=== PATIENT | female | born 1965 | race African-American/Black ===

== ENCOUNTER 2022-05-31 10:41 | Emergency (ER) | payer OTHER ==
[~2022-05-31] VITALS: Ht 172.7 cm; Wt 108.0 kg
[2022-05-31 10:44] VITALS: BP 120/76
[2022-05-31] MEDS ORDERED: INSU100I28 SQ (10:47)
[2022-05-31] MEDS ORDERED: HYDR12.54 PO (10:47)
[2022-05-31] MEDS ORDERED: ATOR10TA PO (10:47)
[2022-05-31] MEDS ORDERED: CYCL5TAB MT (11:31)
[2022-05-31] MEDS ORDERED: LIDO700A15 TP (11:31)
[2022-05-31] MEDS ORDERED: IBUP-2028 MT (11:31)
== END 2022-05-31 11:49 | disposition home or self-care (01) ==
LOC: ER 10:41
DX: M54.50 Low back pain, unspecified (principal); I10 Essential (primary) hypertension; E11.9 Type 2 diabetes mellitus without complications; Z86.39 Personal history of other endocrine, nutritional and metabolic disease; V49.9XXA Car occupant (driver) (passenger) injured in unspecified traffic accident, initial encounter; Y93.89 Activity, other specified; Y92.89 Other specified places as the place of occurrence of the external cause; Y99.8 Other external cause status
CPT/HCPCS: 99283

== ENCOUNTER 2023-12-06 04:25 | Inpatient (IN) | payer MEDICAID, OTHER ==
[~2023-12-06] VITALS: Ht 162.6 cm; Wt 90.7 kg
[~2023-12-06 04:25] MED LIST: ATOR10TA PO; CYCL5TAB MT; HYDR12.54 PO; IBUP-2028 MT; INSU100I28 SQ; LIDO700A15 TP
[2023-12-06 04:55] LABS: BASOPHILS % 0.7 % (0.0-2.0); DIFFERENTIAL COMMENT 0; EOSINOPHILS % 1.5 % (0.0-5.0); HEMATOCRIT. 35.9 % (36.0-48.0); HEMOGLOBIN. 11.5 g/dL (12.0-16.0); LYMPHOCYTES % 40.3 % (20.0-50.0); MEAN CORPUSCULAR HEMOGLOBIN 25.2 pg (28.0-32.0); MEAN CORPUSCULAR VOLUME 78.9 fL (81.0-99.0); MEAN PLATELET VOLUME 8.5 fl (7.4-10.4); MONOCYTES % 7.7 % (2.0-8.0); NEUTROPHILS % 49.8 % (40.0-76.0); PLATELET 310 x1000/uL (130-400); RED BLOOD CELL COUNT 4.56 mill/uL (4.2-5.4); WHITE BLOOD COUNT 7.2 x1000/uL (4.5-11.0)
[2023-12-06 05:05] LABS: CHLORIDE 103 mEq/L (98-107); POTASSIUM 3.4 mEq/L (3.5-5.1); SODIUM 137 mEq/L (136-145)
[2023-12-06 05:06] LABS: CARBON DIOXIDE 28 mEq/L (21-32)
[2023-12-06 05:07] LABS: CALCIUM 9.4 mg/dL (8.7-10.4); INR 0.9; PARTIAL THROMBOPLASTIN TIME 26.2 sec (23.4-31.0); PROTHROMBIN TIME 10.1 sec (9.6-11.0)
[2023-12-06 05:11] LABS: CREATININE 1.1 mg/dL (0.6-1.0)
[2023-12-06 05:12] LABS: GLUCOSE 306 mg/dL (70-105); TROPONIN I HIGH SENSITIVITY 5 ng/L (3.0-34); UREA NITROGEN BLOOD 21 mg/dL (9-23)
[2023-12-06 05:15] LABS: ETHANOL BLOOD < 10 mg/dL (<10)
[2023-12-06] MEDS: ONDANSETRON HCL 4MG/2ML INJ IV ONE (05:30)
[2023-12-06] MEDS: MECLIZINE 25MG TABLET PO ONE (05:30)
[2023-12-06 05:34] LABS: ALANINE AMINOTRANSFERASE 12 IU/L (10-49); ALBUMIN 4.3 g/dL (3.2-4.8); ASPARTATE AMINOTRANSFERASE 12 IU/L (<34); BILIRUBIN TOTAL 0.4 mg/dL (0.1-1.0); PROTEIN TOTAL 7.5 g/dL (6.0-8.3)
[2023-12-06 05:38] LABS: BILIRUBIN DIRECT < 0.1 mg/dL (<=3.0)
[2023-12-06] MEDS: MECLIZINE 25MG TABLET PO NR (05:45)
[2023-12-06] MEDS: ONDANSETRON HCL 4MG/2ML INJ IV NR (05:45)
[2023-12-06 05:50] LABS: CLARITY URINE TURBID (CLEAR); COLOR URINE YELLOW (YELLOW); GLUCOSE URINE 3+ (NEGATIVE); KETONES URINE NEGATIVE (NEGATIVE); LEUKOCYTE ESTERASE URINE 3+ (NEGATIVE); NITRITE URINE NEGATIVE (NEGATIVE); OCCULT BLOOD URINE 3+ (NEGATIVE); PH URINE 5.5 (4.5-8.0); PROTEIN URINE 1+ (NEGATIVE); UROBILINOGEN URINE 0.2 E.U./dL (0.2-1.0)
[2023-12-06 06:06] LABS: *AMPHETAMINES SCREEN URINE NEGATIVE (NEGATIVE); *BARBITURATES SCREEN URINE NEGATIVE (NEGATIVE); *BENZODIAZEPINES SCREEN URINE NEGATIVE (NEGATIVE); *COCAINE SCREEN URINE NEGATIVE (NEGATIVE)
[2023-12-06 06:07] LABS: CANNABINOID URINE SCREEN NEGATIVE (NEGATIVE); ECSTASY MDMA SCREEN URINE NEGATIVE (NEGATIVE); METHADONE URINE SCREEN NEGATIVE (NEGATIVE); OPIATES URINE SCREEN NEGATIVE (NEGATIVE); PHENCYCLIDINE URINE SCREEN NEGATIVE (NEGATIVE)
[2023-12-06 06:18] LABS: WBC URINE TNTC /hpf (0-2)
[2023-12-06 06:19] LABS: BACTERIA URINE TRACE; SQUAMOUS EPITHELIAL CELL URINE 1+ /lpf (RARE/1+); YEAST URINE 2+
[2023-12-06] MEDS: FLUCONAZOLE 150MG TABLET PO NR (06:45)
[2023-12-06] MEDS: CEFTRIAXONE 1GM/50ML 50 ML IV ONE (07:12)
[2023-12-06] MEDS: FLUCONAZOLE 100MG TABLET PO ONE (07:13)
[2023-12-06] MEDS ORDERED: MAGNESIUM/ALUMINUM HYDROXIDE/SIMETHICONE 30ML UDC PO PRN (09:15)
[2023-12-06] MEDS ORDERED: DEXTROSE 50% WATER 50ML SYRINGE IV PRN (09:15)
[2023-12-06] MEDS ORDERED: CLONIDINE 0.1MG TABLET PO PRN (09:15)
[2023-12-06] MEDS ORDERED: IPRATROPIUM/ALBUTEROL 0.5-3(2.5)MG/3ML NEB HHN PRN (09:15)
[2023-12-06] MEDS ORDERED: ACETAMINOPHEN 325MG TABLET PO PRN (09:15)
[2023-12-06] MEDS ORDERED: ONDANSETRON HCL 4MG/2ML INJ IV PRN (09:15)
[2023-12-06 09:51] LABS: IRON 56 ug/dL (50-170)
[2023-12-06 09:54] LABS: TOTAL IRON BINDING CAPACITY 270 ug/dl (250-425)
[2023-12-06 09:57] LABS: VITAMIN B12 SERUM 635 pg/mL (211-911)
[2023-12-06 09:58] LABS: FERRITIN 144 ng/mL (10-291)
[2023-12-06] MEDS: INSULIN GLARGINE 100 UNITS/ML SUBCUT SCH ×3 (10:00→22:26)
[2023-12-06] MEDS: ACETAMINOPHEN 325MG TABLET PO PRN (10:02)
[2023-12-06] MEDS: LISINOPRIL 10MG TABLET PO SCH (11:58)
[2023-12-06] MEDS: ENOXAPARIN 40MG/0.4ML SYR SUBCUT SCH (11:59)
[2023-12-06] MEDS: BLOOD SUGAR DIAGNOSTIC STRIP TEST SCH ×2 (12:46→21:09)
[2023-12-06] MEDS: INSULIN LISPRO 100 UNITS/ML SUBCUT SCH ×3 (12:47→17:15)
[2023-12-06] MEDS: ATORVASTATIN CALCIUM 40MG TABLET PO SCH (21:16)
[2023-12-06] MEDS: GABAPENTIN 300MG CAPSULE PO SCH (22:00)
[2023-12-06 23:55] VITALS: BP 155/65; PULSE 80; RESP 18; TEMP 36.5292
[2023-12-07] VITALS (10 sets, daily range): BP systolic 104–146; BP diastolic 49–72; PULSE 62–81; RESP 16–20; TEMP 36.50292–36.61404; O2SAT 93–98
[2023-12-07] MEDS ORDERED: LISI10TA26 MT (00:20)
[2023-12-07] MEDS ORDERED: LEVO150T8 MT (00:20)
[2023-12-07] MEDS ORDERED: GABA-532 MT (00:20)
[2023-12-07] MEDS ORDERED: MELA10CA MT (00:20)
[2023-12-07] MEDS: CEFTRIAXONE 1GM/50ML 50 ML IV SCH (06:17)
[2023-12-07] MEDS: LEVOTHYROXINE SODIUM 150MCG TABLET PO SCH (06:43)
[2023-12-07 06:45] LABS: BASOPHILS % 0.7 % (0.0-2.0); DIFFERENTIAL COMMENT 0; FOLIC ACID (FOLATE) SERUM > 20.00 ng/mL (>5.38); HEMATOCRIT. 36.6 % (36.0-48.0); HEMOGLOBIN. 11.7 g/dL (12.0-16.0); LYMPHOCYTES % 45.4 % (20.0-50.0); MEAN CORPUSCULAR HGB CONC 31.9 g/dL (31.0-37.0); MEAN CORPUSCULAR VOLUME 78.5 fL (81.0-99.0); MONOCYTES % 9.1 % (2.0-8.0); NEUTROPHILS % 42.8 % (40.0-76.0); PLATELET 295 x1000/uL (130-400); RED BLOOD CELL COUNT 4.66 mill/uL (4.2-5.4); RED CELL DISTRIBUTION WIDTH 15.9 % (11.6-14.6); WHITE BLOOD COUNT 5.8 x1000/uL (4.5-11.0)
[2023-12-07] MEDS ORDERED: INSULIN LISPRO 100 UNITS/ML SUBCUT SCH ×2 (06:45→16:45)
[2023-12-07 06:48] LABS: CARBON DIOXIDE 29 mEq/L (21-32); CHLORIDE 102 mEq/L (98-107); SODIUM 138 mEq/L (136-145)
[2023-12-07 06:49] LABS: CALCIUM 9.4 mg/dL (8.7-10.4)
[2023-12-07 06:53] LABS: CREATININE 1.1 mg/dL (0.6-1.0); T4 FREE 1.29 ng/dL (0.89-1.76); THYROID STIMULATING HORMONE 0.24 uIU/mL (0.55-4.78)
[2023-12-07 06:54] LABS: GLUCOSE 242 mg/dL (70-105); TRIGLYCERIDE 176 mg/dL (0-150); UREA NITROGEN BLOOD 16 mg/dL (9-23)
[2023-12-07 06:55] LABS: CHOLESTEROL 216 mg/dL (<200); LDL CHOLESTEROL 139 mg/dL (5-100)
[2023-12-07 06:56] LABS: HDL CHOLESTEROL 50 mg/dL (>65); PHOSPHORUS 4.8 mg/dL (2.5-4.9)
[2023-12-07] MEDS: HYDROCHLOROTHIAZIDE 25MG TABLET PO SCH (08:51)
[2023-12-07] MEDS: LISINOPRIL 10MG TABLET PO SCH (08:51)
[2023-12-07] MEDS ORDERED: FLUCONAZOLE 150MG TABLET PO SCH (09:00)
[2023-12-07] MEDS: ENOXAPARIN 30MG/0.3ML SYR SUBCUT SCH (17:38)
[2023-12-07] MEDS: MAGNESIUM 2 G PREMIX 50 ML IV NR (23:00)
[2023-12-07] MEDS: FAMOTIDINE 20MG TABLET PO SCH (23:01)
[2023-12-07] MEDS: MECLIZINE 25MG TABLET PO SCH (23:01)
[2023-12-07] MEDS: INSULIN GLARGINE 100 UNITS/ML SUBCUT SCH (23:06)
[2023-12-08 00:05] VITALS: BP 137/74; PULSE 71; RESP 18; TEMP 36.22512; O2SAT 99
[2023-12-08 04:00] VITALS: BP 123/57; PULSE 61; RESP 18; TEMP 36.44736; O2SAT 96
[2023-12-08] MEDS: CEFTRIAXONE 1GM/50ML 50 ML IV SCH (06:45)
[2023-12-08 08:00] VITALS: BP 113/68; PULSE 66; RESP 18; TEMP 36.44736; O2SAT 97
[2023-12-08] MEDS: INSULIN LISPRO 100 UNITS/ML SUBCUT SCH (08:44)
[2023-12-08 12:00] VITALS: BP 118/79; PULSE 68; RESP 18; TEMP 36.61404; O2SAT 97
[2023-12-08] MEDS ORDERED: MECL-299 PO (13:33)
[2023-12-08] MEDS ORDERED: CEPH500T MT (13:33)
[2023-12-08 15:24] VITALS: BP 129/70; PULSE 75; TEMP 97.9; O2SAT 98
== END 2023-12-08 18:03 | disposition home or self-care (01) | DRG 111 ==
LOC: ER 04:25 → 5WST 06:39 → EDBEDREQ 07:00 → EDBEDREQTM 07:00 → 7WST 22:22
PROVIDERS: ADMIT Hospitalist; ATTEND Hospitalist
DX: R42 Dizziness and giddiness (principal); E11.40 Type 2 diabetes mellitus with diabetic neuropathy, unspecified; B37.49 Other urogenital candidiasis; E03.9 Hypothyroidism, unspecified; D50.9 Iron deficiency anemia, unspecified; E11.65 Type 2 diabetes mellitus with hyperglycemia; E87.6 Hypokalemia; R55 Syncope and collapse; E83.42 Hypomagnesemia; I10 Essential (primary) hypertension; J98.11 Atelectasis; Z80.0 Family history of malignant neoplasm of digestive organs; Z82.49 Family history of ischemic heart disease and other diseases of the circulatory system; Z90.710 Acquired absence of both cervix and uterus
CPT/HCPCS: 36415; 71045; 80048; 80061; 80076; 80305; 80320; 81003; 82010; 82607; 82728; 82746; 82962; 83036; 83540; 83550; 83735; 83880; 84100; 84439; 84443; 84484; 85025; 93005; 99285; J0696; J1650; J1815; J2405; J3475; J8597; G0480